=== PATIENT | female | born 1960 | race Caucasian/White ===

== ENCOUNTER 2024-08-12 14:40 | Emergency (ER) | payer SELFPAY ==
[2024-08-12 14:42] VITALS: BP 182/83
--- NOTE | 2024-08-12 15:16 | ED.GENMED ---
History of Present Illness
<Xander Peoples, DO - Last Filed: 08/12/24 15:20>
General
Chief Complaint: Fall
Source: patient
Exam Limitations: none
Time Seen by Provider: 08/12/24 15:07
History of Present Illness
History of Present Illness:
See MDM
Past History
<Xander Peoples, DO - Last Filed: 08/12/24 15:20>
Past History
ED Past Medical History: Psychiatric (anxiety)
ED Past Surgical History: None
Social History
Tobacco: Smoker
Personal: Single
Living: with family
Phy Exam
<Xander Peoples, DO - Last Filed: 08/12/24 15:20>
Physical Exam
Physical Exam:
See MDM
Course
<Xander Peoples, DO - Last Filed: 08/12/24 15:20>
Orders/Labs/Results
Orders:
Orders
08/12/24 15:16
Tetanus/Diphth/Acelpertussis [Adacel] 0.5 ml IM .ONCE ONE
08/12/24 15:19
CT Head W/o Iv Contrast Urgent
Comment:
Reason For Exam: posterior head injury
Vital Signs
Initial and Last Documented VS:
Initial Vital Signs
Temp Pulse Resp BP Pulse Ox
98.0 F 85 16 182/83 98
08/12/24 14:42 08/12/24 14:42 08/12/24 14:42 08/12/24 14:42 08/12/24 14:42
Last Documented Vital Signs
Temp Pulse Resp BP Pulse Ox
98.0 F 85 16 182/83 98
08/12/24 14:42 08/12/24 14:42 08/12/24 14:42 08/12/24 14:42 08/12/24 14:42
<Farhan Davis PA-C - Last Filed: 08/12/24 16:30>
Orders/Labs/Results
Orders:
Orders
08/12/24 15:16
Tetanus/Diphth/Acelpertussis [Adacel] 0.5 ml IM .ONCE ONE
08/12/24 15:19
CT Head W/o Iv Contrast Urgent
Comment:
Reason For Exam: posterior head injury
Vital Signs
Initial and Last Documented VS:
Initial Vital Signs
Temp Pulse Resp BP Pulse Ox
98.0 F 85 16 182/83 98
08/12/24 14:42 08/12/24 14:42 08/12/24 14:42 08/12/24 14:42 08/12/24 14:42
Last Documented Vital Signs
Temp Pulse Resp BP Pulse Ox
98.0 F 85 16 182/83 98
08/12/24 14:42 08/12/24 14:42 08/12/24 14:42 08/12/24 14:42 08/12/24 14:42
Procedures
<Farhan Davis PA-C - Last Filed: 08/12/24 16:30>
Laceration Closure
Posterior Scalp:
Status of Wound: clean
Size of Wound in cm: 0.8
Description of Wound Edges: sharp
Preparation: cleaned with saline
Type of Closure: single layer closure
Skin Closure Material: skin brit
Number of sutures: 1
<Xander Peoples DO - Last Filed: 08/12/24 15:20>
MDM/Problems Addressed
Differential Diagnosis Includes:
HPI and MDM Narrative:
Physical exam
General: Well appearing and non-toxic
HEENT: protecting airway
Neck: appears supple
CV: No evidence of cyanosis
Resp: No accessory muscle use
Abd: Non-distended
Extremities: No deformities
Neuro: alert
Psych: Normal affect
Skin: Intact
Problems Addressed including Acute and Chronic Conditions affecting care:
1. [ ]
Acuity: acute
Prognosis: stable
Details:
2. [ ]
Acuity: acute
Prognosis: stable
Details:
3. [ ]
Acuity: acute
Prognosis: stable
Details:
4. [ ]
Acuity: acute
Prognosis: stable
Details:
5. [ ]
Acuity:
Prognosis:
Details:
Updates
Differential Diagnosis (but not limited to):
Testing considered:
Drug therapy (if applicable): OTC meds, please see d/c instruction regarding Rx drugs
Amount and/or Complexity of Data Reviewed
Clinical info obtained from: Patient
External data reviewed: N/A
Labs I independently reviewed (but not limited to): [ ]
Radiology: N/A
Pulse Ox: not hypoxic
EKG independently reviewed: N/A
Justice Professor: N/A
Critical Care: N/A
Risk of Complication:
Social Determinants of health: Good social support
Discussed with other providers: N/A
Escalation of Care includes Admit/Obs: After being observed in the Emergency Department, pt stable for discharge.
Occasional wrong word or 'sound a like' substitutions may have occurred due to the inherent limitations of voice recognition software. Read the chart carefully and recognize, using context, where substitutions have occurred.
<Farhan Davis PA-C - Last Filed: 08/12/24 16:30>
*Critical Care Note
Total Time (30-74mins, 75-104mins- exclusive of procedures): Not Applicable
ED Attending Note
<DO Clemencia Spaulding Last Filed: 08/12/24 15:20>
-
Portions of this chart may have been created with voice recognition software.� Occasional wrong word or��sound alike� substitutions may have occurred due to the inherent limitations of voice recognition software.
Discharge Plan
Departure
Patient Disposition: Home (Routine Discharge)
Date of Disposition: 08/12/24
Time of Disposition: 15:17
Patient with high blood pressure during this ER visit?: Yes
Discharge Problem:
Head injury
Instructions: Head Injury in Adults (DC), BLOOD PRESSURE
Prescriptions:
New
amoxicillin-pot clavulanate 875-125 mg tablet
1 tab PO BID Qty: 14 0RF
No Action
prednisone 10 MG tablet
10 mg PO .TAPER Qty: 30 0RF
Rx Instructions:
Take 50mg daily for 2 days, 40mg daily for 2 days, 30mg daily for 2 days, 20mg daily for 2 days, 10mg daily for 2 days
azithromycin 250 MG tablet
250 mg PO DAILY Qty: 6 0RF
albuterol sulfate 1 PUFF HFA aerosol inhaler
2 puff inhalation QIDPRN PRN (Reason: wheezing) Qty: 1 0RF
Activity Restrictions/Additional Instructions:
Please return for any worsening symptoms.
You may return at any time if you have further concerns.
Please follow up with your doctor at the first available appointment, preferably this week.
Watch for signs of infection: fever over 100.5', increasing pain, red streaks around wound, swelling, or increasing drainage of pus. If any of these happen, make sure that you take all your antibiotics as directed and finish your prescription even
if you feel better before the bottle is empty.
Thank you for choosing [facility].
Interventions
Interventions:
*Risk Screen - Suicide Last Done: 08/12/24 14:42
*General Assessment Last Done: 08/12/24 14:42
*Nursing Disposition Last Done: 08/12/24 16:05
ED-Musculoskeletal Assessment Last Done: 08/12/24 15:50
ED- Neurological Assessment Last Done: 08/12/24 15:50
ED-Skin Assessment Last Done: 08/12/24 15:50
Discharge Date and Time
Discharge Date/Time: 08/12/24 16:06
Print Language: ITALIAN
[2024-08-12] MEDS: ADACEL 0.5 ML IM (15:22)
== END 2024-08-12 16:06 | disposition home or self-care (01) ==
LOC: EMR 14:40
PROVIDERS: EMERGENCY PHYSICIAN Student in an Organized Health Care Education/Training Program
DX: S01.01XA Laceration without foreign body of scalp, initial encounter (principal); W19.XXXA Unspecified fall, initial encounter; F17.200 Nicotine dependence, unspecified, uncomplicated; Z23 Encounter for immunization
CPT/HCPCS: 12001; 90471; 99283; 90715

== ENCOUNTER → 2025-03-12 10:53 | Outpatient (REF) | payer OTHER, SELFPAY | LOC: EMG 10:53 | PROVIDERS: ATTENDING PHYSICIAN Podiatrist Foot & Ankle Surgery; FAMILY PHYSICIAN Internal Medicine | DX: M54.17 Radiculopathy, lumbosacral region (principal); R20.0 Anesthesia of skin | CPT/HCPCS: 95886; 95911 ==